=== PATIENT | female | born 1975 | race African-American/Black ===

== ENCOUNTER 2016-07-11 22:54 | Emergency (ER) | payer SELFPAY ==
[2016-07-11 22:59] VITALS: BP 111/75; BMI 31.0
--- NOTE | 2016-07-11 23:31 | DR.GENAD ---
HPI - PCP Primary Care Physician: [email or web address] - HPI Comment HPI Comment: PATIENT COUGH IS PRODUCTIVE WITH THICK MUCOUS. NO FEVER. UPPER CHEST PAIN FROM COUGHING. - Complaint/Symptoms Chief Complaint Doctors Comments: COUGH, SOB, FEEL SOMETHING IN WINDPIPE CUTTING HER AIR OFF. 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 Surgery - Family History History of Family Medical Conditions: Yes Family Medical History: Diabetes Mellitus, Hypertension - Social History Does patient currently use any type of tobacco product: No Have you used tobacco products in the last 12 months: No Does any household member use tobacco: No Alcohol Use: Occasionally Do you use any recreational Drugs:: No Lives With: Family Lives Where: Home - infectious screening In the last 2 months have you had wt loss of >10#?: NO Have you had fever, night sweats or hemotysis?: No Have you traveled outside the country in the last 6 months?: No Isolation: Standard ROS - Review of Systems Constitutional: No Symptoms Reported Eyes: No Symptoms Reported. negative: Eye Pain, Discharge ENTM: No Symptoms Reported, Nose Congestion. negative: Ear Pain, Nose Discharge , Throat Pain Respiratoy: Productive Cough, Short of Breath. negative: Wheezing, Hemoptysis Cardiovascular: No Symptoms Reported Gastrointestinal/Abdominal: No Symptoms Reported Genitourinary: No Symptoms Reported. negative: Dysuria, Frequency, Hematuria Neurological: Headache, Dizziness Musculoskeletal: No Symptoms Reported Hematologic/Lymphatic: No Symptoms Reported Endocrine: negative: Flushing, Increased Thirst, Increased Urine All Other Systems: Reviewed and Negative PE - Vital Signs Vitals: Temperature 98.2 F Pulse Rate 87 Respiratory Rate 20 Blood Pressure [Left Arm] 98/67 Blood Pressure 111/75 O2 Sat by Pulse Oximetry 100 - General Limitations: No Limitations General Appearance: Alert - Head Head Exam: Normal Inspection - Eyes Eye exam: Normal Appearance - ENT ENT Exam: Normal External Ear Exam External Ear Exam: Normal External Inspection TM/Canal Exam: Bilateral Normal Nose Exam: Normal Nose Exam Mouth Exam: Normal Inspection Throat Exam: Tonsillar Erythema. negative: Tonsillomegaly, Tonsillar Exudate - Neck Neck Exam: Trachea Midline. negative: Tenderness, Meningismus, Lymphadenopathy - Chest Chest Inspection: Symmetric Chest Wall Rise - Respiratory Respiratory Exam: negative: Respiratory Distress Respiratory Exam: Bilateral Rhonchi, Lower Rhonchi - Cardiovascular Cardiovascular Exam: Regular Rate, Normal Rhythm, Normal Heart Sounds - Abdominal Exam Abdominal Exam: Normal Bowel Sounds, Soft. negative: Tenderness - Extremities Extremities Exam: Normal Inspection - Back Back Exam: Normal Inspection - Neurologic Neurological Exam: Alert, Oriented X3, CN II-XII Intact. negative: Motor Sensory Deficit - Psychiatric Psychiatric Exam: Anxious - Skin Skin Exam: Normal Color MDM - Additional Information Additional Information Obtained From: Family - Differential Diagnosis Differential Diagnosis: BRONCHITIS, PNEUMONIA Course - Treatment Treatment: SEE ORDERS. - Education/Counseling Education/Counseling: Patient, Family, Education Educated On: Diagnosis, Needs for Follow Up ROR - XRAY XRAY Interpreted by: Radiologist XRAY Findings: REPORT DISCUSS WITH PATIENT. - Diagnosis Discharge Problem: Acute bronchitis Qualifiers: Bronchitis organism: other organism Qualified Code(s): J20.8 - Acute bronchitis due to other specified organisms - Discharge Plan Disposition: 01 HOME, SELF-CARE Condition: Stable Prescriptions: Azithromycin [Zithromax Z-Brandon 5-day] 1 dose PO DAILY #6 tab Promethazine W/Codeine [PHENERGAN W/CODEINE 6.25mg/10mg (5mL) *] 10 ml PO Q6H PRN #120 ml PRN Reason: Cough - Follow ups/Referrals Follow ups/Referrals: [facility] CHE [Primary Care Provider] - 1 day - Instructions Instructions: Acute Bronchitis Additional Instructions: RETURN TO ED IF WORSE.
--- NOTE | 2016-07-11 23:32 | RAD ---
EXAM: Chest X-ray INDICATION: Shortness of breath. COMPARISION: Prior exam from May 19, 2016 TECHNIQUE: PA and Lat, 2 view FINDINGS: The lungs are clear and the lung volumes are within normal limits. No pleural effusion or pneumothor ax. The cardiac silhouette and mediastinum are normal. The regional skeleton is intact. IMPRESSION: Normal Chest X-Ray Reported By:
[2016-07-12] MEDS ORDERED: ZITHROMAX TAB 250 MG PO ONE ×2 (00:03→00:15)
[2016-07-12] MEDS ORDERED: PHENERGAN W/CODEINE 6.25MG/10MG PO ONE (00:03)
[2016-07-12] MEDS ORDERED: PHENERGAN W/CODEINE 6.25MG/10MG ONE (00:15)
== END 2016-07-12 00:21 | disposition home or self-care (01) ==
LOC: ER 23:02
DX: J20.8 Acute bronchitis due to other specified organisms (principal)
CPT/HCPCS: 71020; 99282; Q0144

== ENCOUNTER 2016-09-14 15:19 | Emergency (ER) | payer SELFPAY ==
[2016-09-14 15:36] VITALS: BP 138/83; BMI 31.2
[2016-09-14] MEDS ORDERED: NS 1000 ML 1,000 ML ONE ×2 (16:02→17:45)
[2016-09-14] MEDS ORDERED: NS 1000 ML 1,000 ML IV ONE (16:06)
--- NOTE | 2016-09-14 16:08 | DR.HYPOGLY ---
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 SO I ATE 4 POPISCLES BACK TO BACK. JUST BLACKED OUT. I FELT MYSELF GOING DOWN. 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 - Family History History of Family Medical Conditions: Yes Family Medical History: Diabetes Mellitus, Hypertension - Social History Does any household member use tobacco: No Alcohol Use: None Do you use any recreational Drugs:: No Lives With: Family Lives Where: Home - infectious screening In the last 2 months have you had wt loss of >10#?: NO Have you had fever, night sweats or hemotysis?: No Have you traveled outside the country in the last 6 months?: No Isolation: Standard ROS - Review of Systems Constitutional: negative: Diaphoresis Eyes: No Symptoms Reported ENTM: No Symptoms Reported Respiratoy: No Symptoms Reported Cardiovascular: No Symptoms Reported Gastrointestinal/Abdominal: No Symptoms Reported Genitourinary: No Symptoms Reported Neurological: No Symptoms Reported Musculoskeletal: No Symptoms Reported Integumentary: No Symptoms Reported Hematologic/Lymphatic: No Symptoms Reported Endocrine: No Symptoms Reported Psychiatric: No Symptoms Reported All Other Systems: Reviewed and Negative PE - Vital Signs Vitals: Temperature 97.9 F Pulse Rate 79 Respiratory Rate 20 Blood Pressure [Left Arm] 98/67 Blood Pressure 138/83 O2 Sat by Pulse Oximetry 100 - General Limitations: No Limitations General Appearance: Alert, In No Apparent Distress - Eyes Eye exam: Normal Appearance, PERRL, EOMI Pupils: Regular, Round: Bilateral - ENT ENT Exam: Normal Exam Nose Exam: Normal Nose Exam, Sinus Tenderness Mouth Exam: Normal Inspection Throat Exam: Normal Inspection - Neck Neck Exam: Normal Inspection - Chest Chest Inspection: Normal Inspection - Respiratory Respiratory Exam: Normal Lung Sounds Bilat Respiratory Exam: Bilateral Clear to Auscultation - Cardiovascular Cardiovascular Exam: Regular Rate, Normal Rhythm - Abdominal Exam Abdominal Exam: Normal Inspection Abdominal Tenderness: negative: RUQ, RLQ, LUQ, LLQ, Epigastrium, Suprapubic, Diffuse, Mild, Moderate, Severe, Other - Extremities Extremities Exam: Normal Inspection, Full ROM - Back Back Exam: Normal Inspection, Full ROM - Neurologic Neurological Exam: Alert, Oriented X3, CN II-XII Intact Patient Oriented To: Person Cranial Nerve Exam: EOM Function (II, III, IV, ): Normal Cerebellar Function: Finger to Nose: Normal Cerebellar Function: Normal Gait Motor Strength - LUE: 3/5 Motor Strength - RUE: 3/5 Motor Strength - LLE: 3/5 Sensory Exam Upper Extremity: Light Touch: Normal Sensory Exam Lower Extremity: Light Touch: Normal DTR: achilles tendon (L): 2+ - Psychiatric Psychiatric Exam: Normal Affect, Normal Mood - Skin Skin Exam: Warm, Dry, Intact Course - Treatment Treatment: IVF, Insulin via sliding scale,Potassium - Reevaluation 1st: Improved ROR - Labs Reviewed Result Diagrams: 09/14/16 15:45 09/14/16 15:45 Laboratory: WBC 6.5 X10^3/uL (3.6-10.0) 09/14/16 15:45 RBC 4.55 X10^6/uL (3.5-5.4) 09/14/16 15:45 Hgb 13.6 g/dL (12.0-16.0) 09/14/16 15:45 Hct 40.4 % (36.0-47.0) 09/14/16 15:45 MCV 88.8 fL (80.0-100.0) 09/14/16 15:45 MCH 29.9 pg (27.0-34.0) 09/14/16 15:45 MCHC 33.7 g/dL (33.0-35.0) 09/14/16 15:45 RDW 13.5 % (11.6-16.5) 09/14/16 15:45 Plt Count 265 X10^3/uL (150.0-450.0) 09/14/16 15:45 MPV 8.4 fL (7.4-11.0) 09/14/16 15:45 Neut % 48.6 % (42.0-75.0) 09/14/16 15:45 Lymph % 44.0 % (21.0-51.0) 09/14/16 15:45 Bullock % 4.4 % (0.0-13.0) 09/14/16 15:45 Eos % 0.9 % (0.9-2.9) 09/14/16 15:45 Baso % 2.1 % (0.2-1.0) H 09/14/16 15:45 Neut # 3.1 x10^3/uL (2.2-4.8) 09/14/16 15:45 Lymph # 2.8 X10^3/uL (1.3-2.9) 09/14/16 15:45 Bullock # 0.3 x10^3/uL (0.3-0.8) 09/14/16 15:45 Eos # 0.1 x10^3/uL (0.0-0.2) 09/14/16 15:45 Baso # 0.1 X10^3/uL (0.0-0.1) 09/14/16 15:45 Absolute Nucleated RBC 0.0 /100WBC 09/14/16 15:45 Sodium 134 mmol/L (136-145) L 09/14/16 15:45 Corrected Sodium 143 mmol/L (136-145) 09/14/16 15:45 Potassium 3.3 mmol/L (3.5-5.1) L 09/14/16 15:45 Chloride 102 mmol/L (98-107) 09/14/16 15:45 Carbon Dioxide 24.0 mmol/L (21-32) 09/14/16 15:45 BUN 7 mg/dL (7-18) 09/14/16 15:45 Creatinine 0.84 mg/dL (0.55-1.02) 09/14/16 15:45 Est GFR (MDRD) Af Amer > 60 (>60) 09/14/16 15:45 Est GFR (MDRD) Non-Af > 60 (>60) 09/14/16 15:45 Glucose 494 mg/dL (65-99) H 09/14/16 15:45 Hemoglobin A1c 13.1 % (4.5-6.2) H 09/14/16 15:45 Calcium 7.9 mg/dL (8.5-10.1) L 09/14/16 15:45 Corrected Calcium 8.8 mg/dL (8.5-10.1) 09/14/16 15:45 Total Bilirubin 0.40 mg/dL (0.2-1.0) 09/14/16 15:45 AST 11 Units/L (15-37) L 09/14/16 15:45 ALT 38 Units/L (12-78) 09/14/16 15:45 Alkaline Phosphatase 110 Units/L (46-116) 09/14/16 15:45 Total Protein 7.0 g/dL (6.4-8.2) 09/14/16 15:45 Albumin 2.9 g/dL (3.4-5.0) L 09/14/16 15:45 Globulin 4.1 g/dL (2.5-4.5) 09/14/16 15:45 Albumin/Globulin Ratio 0.7 Ratio (1.1-2.1) L 09/14/16 15:45 Specimen Type Clean catch urine 09/14/16 17:40 Urine Color Straw (YELLOW) 09/14/16 17:40 Urine Appearance Clear (CLEAR) 09/14/16 17:40 Urine pH 7.0 (5.0 - 8.0) 09/14/16 17:40 Ur Specific Trevor 1.010 (1.000-1.030) 09/14/16 17:40 Urine Protein Negative (NEGATIVE) 09/14/16 17:40 Urine Glucose (UA) 4+ (NEGATIVE) 09/14/16 17:40 Urine Ketones Negative (NEGATIVE) 09/14/16 17:40 Urine Occult Blood Negative (NEGATIVE) 09/14/16 17:40 Urine Nitrite Negative (NEGATIVE) 09/14/16 17:40 Urine Bilirubin Negative (NEGATIVE) 09/14/16 17:40 Urine Urobilinogen Normal (NORMAL) 09/14/16 17:40 Ur Leukocyte Esterase 2+ (NEGATIVE) 09/14/16 17:40 Urine RBC None seen /HPF (NEGATIVE) 09/14/16 17:40 Urine WBC None seen /HPF (NEGATIVE) 09/14/16 17:40 Ur Squamous Epith Cells Negative /HPF (NEGATIVE) 09/14/16 17:40 Urine Bacteria Negative /HPF (NEGATIVE) 09/14/16 17:40 Ur Culture Indicated? Yes/culture set up 09/14/16 17:40 - XRAY XRAY Interpreted by: Radiologist (Chest: No acute process) - Diagnosis Discharge Problem: Hyperglycemia - Discharge Plan Condition: Stable - Follow ups/Referrals Follow ups/Referrals: LINDSEY MALIK [Primary Care Provider] - 3 days - Instructions
[2016-09-14 16:18] LABS: BASOPHILS # (AUTO) 0.1 X10^3/uL (0.0-0.1); BASOPHILS % (AUTO) 2.1 % (0.2-1.0); EOSINOPHILS # (AUTO) 0.1 x10^3/uL (0.0-0.2); EOSINOPHILS % (AUTO) 0.9 % (0.9-2.9); HEMATOCRIT 40.4 % (36.0-47.0); HEMOGLOBIN 13.6 g/dL (12.0-16.0); LYMPHOCYTES # (AUTO) 2.8 X10^3/uL (1.3-2.9); MEAN CORPUSCULAR HEMOGLOBIN 29.9 pg (27.0-34.0); MEAN CORPUSCULAR HGB CONC 33.7 g/dL (33.0-35.0); MEAN CORPUSCULAR VOLUME 88.8 fL (80.0-100.0); MEAN PLATELET VOLUME 8.4 fL (7.4-11.0); MONOCYTES # (AUTO) 0.3 x10^3/uL (0.3-0.8); MONOCYTES % (AUTO) 4.4 % (0.0-13.0); NEUTROPHILS # (AUTO) 3.1 x10^3/uL (2.2-4.8); NEUTROPHILS % (AUTO) 48.6 % (42.0-75.0); PLATELET COUNT 265 X10^3/uL (150.0-450.0); RED BLOOD COUNT 4.55 X10^6/uL (3.5-5.4); RED CELL DISTRIBUTION WIDTH 13.5 % (11.6-16.5); WHITE BLOOD COUNT 6.5 X10^3/uL (3.6-10.0)
[2016-09-14 16:42] LABS: ALANINE AMINOTRANSFERASE 38 Units/L (12-78); ALBUMIN 2.9 g/dL (3.4-5.0); ALKALINE PHOSPHATASE 110 Units/L (46-116); ASPARTATE AMINO TRANSFERASE 11 Units/L (15-37); BLOOD UREA NITROGEN 7 mg/dL (7-18); CALCIUM 7.9 mg/dL (8.5-10.1); CHLORIDE 102 mmol/L (98-107); COR CA(FOR HYPOALB) 8.8 mg/dL (8.5-10.1); COR NA(FOR HYPERGLY) 143 mmol/L (136-145); CREATININE 0.84 mg/dL (0.55-1.02); GLUCOSE 494 mg/dL (65-99); SODIUM 134 mmol/L (136-145); eGFR BLACK RACES > 60 (>60); eGFR NON BLACK RACES > 60 (>60)
[2016-09-14 16:44] LABS: HEMOGLOBIN A1C 13.1 % (4.5-6.2)
[2016-09-14] MEDS ORDERED: K-LYTE EFFERVESCENT ONE (16:54)
--- NOTE | 2016-09-14 16:59 | RAD ---
HISTORY: Hyperglycemia. Study: Portable chest. Comparison: Chest x-ray dated July 11, 2016. Findings: The trachea is midline. The cardiac silhouette is unremarkable. The lungs are clear without focal infiltrate or effusion. The bony thorax is unremarkable. IMPRESSION: 1. No acute cardiopulmonary disease. Reported By:
[2016-09-14] MEDS ORDERED: K-LYTE EFFERVESCENT PO SCH (17:00)
[2016-09-14] MEDS ORDERED: HumuLIN R SUBCUT STA (17:45)
[2016-09-14] MEDS ORDERED: HumuLIN R ONE (17:46)
[2016-09-14 17:47] LABS: BILIRUBIN,URINE NEGATIVE (NEGATIVE); BLOOD/HEMOGLOBIN,URINE NEGATIVE (NEGATIVE); GLUCOSE, URINE 4+ (NEGATIVE); KETONES,URINE NEGATIVE (NEGATIVE); LEUKOCYTE ESTERASE ,URINE 2+ (NEGATIVE); NITRITES,URINE NEGATIVE (NEGATIVE); PROTEIN,URINE NEGATIVE (NEGATIVE); UROBILINOGEN,URINE NORMAL (NORMAL)
[2016-09-14 18:02] LABS: APPEARANCE,URINE CLEAR (CLEAR); BACTERIA,URINE NEGATIVE /HPF (NEGATIVE); COLOR,URINE STRAW (YELLOW); RBC,URINE NONE SEEN /HPF (NEGATIVE); SQUAMOUS EPITHELIAL CELL,UR NEGATIVE /HPF (NEGATIVE)
[2016-09-14] MEDS ORDERED: SNACK - Diabetic Appropriate PO SCH (20:00)
== END 2016-09-14 19:45 | disposition home or self-care (01) ==
LOC: ER 15:19
DX: R73.9 Hyperglycemia, unspecified (principal)
CPT/HCPCS: 36415; 71010; 80053; 81001; 82947; 83036; 85025; 87086; 96365; 96367; 96372; 96374; 99283; J1815

== ENCOUNTER 2016-11-21 18:01 | Emergency (ER) | payer SELFPAY ==
[2016-11-21 18:10] VITALS: BP 112/78; BMI 31.6
--- NOTE | 2016-11-21 19:48 | DR.GENAD ---
HPI - PCP Primary Care Physician: [facility] CHE - HPI Comment HPI Comment: HISTORY BELOW. - Complaint/Symptoms Chief Complaint Doctors Comments: CUT HER ARM WITH MATTRESS FILLING MACHINE TENDER AT HOME TONIGHT. JOHNSON TSE. 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 Past Surgical History Comment: BILATERAL BREAST CYST REMOVAL - Family History History of Family Medical Conditions: Yes Family Medical History: Diabetes Mellitus - Social History Does patient currently use any type of tobacco product: No Have you used tobacco products in the last 12 months: No Type of Tobacco Use: None Does any household member use tobacco: No Alcohol Use: None Do you use any recreational Drugs:: No Lives With: Family Lives Where: Home - infectious screening In the last 2 months have you had wt loss of >10#?: NO Have you had fever, night sweats or hemotysis?: No Have you traveled outside the country in the last 6 months?: No ROS - Review of Systems Constitutional: No Symptoms Reported Eyes: No Symptoms Reported ENTM: No Symptoms Reported Respiratoy: No Symptoms Reported Cardiovascular: No Symptoms Reported Gastrointestinal/Abdominal: No Symptoms Reported Genitourinary: No Symptoms Reported Neurological: No Symptoms Reported Musculoskeletal: No Symptoms Reported Integumentary: Change in Color (LACERATION LT FOREARM.) Hematologic/Lymphatic: No Symptoms Reported Endocrine: No Symptoms Reported All Other Systems: Reviewed and Negative PE - Vital Signs Vitals: Temperature 98.1 F Pulse Rate 95 Respiratory Rate 18 Blood Pressure [Left Arm] 98/67 Blood Pressure 112/78 O2 Sat by Pulse Oximetry 100 - General Limitations: No Limitations General Appearance: Alert - Head Head Exam: Normal Inspection - Eyes Eye exam: Normal Appearance - ENT ENT Exam: Normal External Ear Exam - Neck Neck Exam: Trachea Midline - Chest Chest Inspection: Symmetric Chest Wall Rise - Respiratory Respiratory Exam: Bilateral Clear to Auscultation - Cardiovascular Cardiovascular Exam: Regular Rate, Normal Rhythm, Normal Heart Sounds - Neurologic Neurological Exam: Alert, Oriented X3 - Psychiatric Psychiatric Exam: Normal Affect, Normal Mood - Skin Skin Exam: Erythema, Other (3CM LAC LOWER LEFT FOREARM.) MDM - Differential Diagnosis Differential Diagnosis: LAC ARM/LT Course - Treatment Treatment: LAC CLOSE IN ED. - Reevaluation 1st: Improved - Education/Counseling Education/Counseling: Patient, Education Educated On: Diagnosis, Needs for Follow Up Procedures - Laceration/Wound Repair Left Arm Wound Length (cm): 3 Wound's Depth, Shape: Linear Wound Explored: clean Betadine Prep?: Yes Anesthesia: 1% Lidocaine Volume Anesthetic (ccs): 2 Wound Debrided: minimal Wound Repaired With: sutures Suture Size/Type: 4:0, [place] Number of Sutures: 3 Layer Closure?: No Sterile Dressing Applied?: Yes Splint Applied?: No Sling Applied?: No - Diagnosis Discharge Problem: Arm laceration Qualifiers: Encounter type: initial encounter Laterality: left Qualified Code(s): S41.112A - Laceration without foreign body of left upper arm, initial encounter - Discharge Plan Disposition: 01 HOME, SELF-CARE Condition: Stable - Follow ups/Referrals Follow ups/Referrals: NFD,None [Primary Care Provider] - 3 days - Instructions Instructions: Laceration Care, Adult, [id number] Additional Instructions: RETURN TO ED IF WORSE. SUTURE OUT IN 7 TO 10 DAYS
== END 2016-11-21 20:01 | disposition home or self-care (01) ==
LOC: ER 18:14
PROC: 0XQ90ZZ Repair Left Upper Arm, Open Approach (ICD-10-PCS; principal; 2016-11-21)
DX: S41.112A Laceration without foreign body of left upper arm, initial encounter (principal); W45.8XXA Other foreign body or object entering through skin, initial encounter; Y92.009 Unspecified place in unspecified non-institutional (private) residence as the place of occurrence of the external cause
CPT/HCPCS: 12002; 99282